=== PATIENT | male | born 1985 | race Caucasian/White ===

== ENCOUNTER 2016-11-29 20:31 | Emergency (ER) | payer OTHER ==
[2016-11-30 00:24] LABS: BILIRUBIN 1+ mg/dL (NEGATIVE); BLOOD NEGATIVE Ery/uL (NEGATIVE); CLARITY CLEAR (CLEAR); COLOR YELLOW (YELLOW); GLUCOSE (U) NORMAL (NORMAL); KETONE (U) NEGATIVE (NEGATIVE); LEUKOCYTES NEGATIVE Leu/uL (NEGATIVE); NITRITE NEGATIVE (NEGATIVE); PROTEIN TRACE (LOW) mg/dL (NEGATIVE); SPECIFIC GRAVITY >=1.030 (1.001-1.030)
[2016-11-30 00:30] LABS: BACTERIA TRACE
[2016-11-30 00:31] LABS: MUCOUS LARGE
[2016-11-30 00:41] LABS: BASOPHIL 0.3 % (0-2); EOSINOPHIL 2.5 % (0-5); HCT 44.3 % (42.0-52.0); HGB 15.1 g/dl (13.2-18.0); LYMPHOCYTE 46.2 % (15-48); MCH 29.6 pg (25.0-31.0); MCHC 34.1 g/dL (32.0-36.0); MCV 86.9 fL (78.0-100.0); MONOCYTE 7.7 % (0-12); MPV 9.8 fL (6.0-9.5); NEUTROPHIL 43.3 % (41-80); PLT 280 K/uL (150-400); RDW 13.2 % (11.5-14.0); WBC 7.7 K/uL (4.0-10.5)
[2016-11-30 01:13] LABS: ALBUMIN 4.4 g/dL (3.5-5.0); BILIRUBIN - TOTAL 0.5 mg/dL (0.1-1.0); CREATININE 0.8 mg/dL (0.7-1.2); GLOBULIN (CALCULATION) 1.8 g/dL (2.2-4.2); POTASSIUM 3.9 mmol/L (3.5-5.1); TOTAL PROTEIN 6.2 g/dL (6.4-8.3)
== END 2016-11-30 04:08 | disposition home or self-care (01) ==
LOC: FER 20:31
PROVIDERS: Emergency Medicine
DX: R10.2 Pelvic and perineal pain (principal); R10.11 Right upper quadrant pain; R10.12 Left upper quadrant pain; R11.0 Nausea; R19.7 Diarrhea, unspecified; R06.02 Shortness of breath; F17.210 Nicotine dependence, cigarettes, uncomplicated; Z90.49 Acquired absence of other specified parts of digestive tract
CPT/HCPCS: 36415; 80053; 81001; 83690; 85025

== ENCOUNTER 2021-04-28 01:04 | Emergency (ER) | payer OTHER ==
[~2021-04-28 01:04] MED LIST: AUGMENTIN 875-1 EACH PO; BENTYL10 MG PO; BROMFED DM COU473 ML PO; CYCLOBENZAPRINE10 MG PO; DICLOFENAC SODI75 MG PO; FLEXERIL10 MG PO; IBU800 MG PO; IBUPROFEN800 MG PO; MEDROL 4MG DOSEP4 MG PO; PENICILLIN V P250 M1 PO; ULTRAM50 MG PO; VOLTAREN **OUT75 MG PO; ZOFRAN8 MG PO
[2021-04-28] MEDS ORDERED: NORCO 5-325 TA1 EACH PO (02:11)
[2021-04-28] MEDS ORDERED: CLEOCIN300 MG PO (02:11)
[2021-04-28] MEDS ORDERED: PERIDEX15 ML PO (02:13)
== END 2021-04-28 02:26 | disposition home or self-care (01) ==
LOC: FER 01:04
DX: K04.7 Periapical abscess without sinus (principal); K02.9 Dental caries, unspecified; F17.210 Nicotine dependence, cigarettes, uncomplicated
CPT/HCPCS: 99282

== ENCOUNTER 2021-11-02 09:11 | Emergency (ER) | payer OTHER ==
[~2021-11-02 09:11] MED LIST changes: +CLEOCIN300 MG PO; +NORCO 5-325 TA1 EACH PO; +PERIDEX15 ML PO
[2021-11-02 10:24] LABS: CORONAVIRUS 2019 SARS-COV-2 NEGATIVE (NEGATIVE)
[2021-11-02 10:26] LABS: INFLUENZA A NAA POSITIVE (NEGATIVE)
== END 2021-11-02 12:45 | disposition home or self-care (01) ==
LOC: FER 09:11
PROVIDERS: Emergency Medicine
DX: J10.1 Influenza due to other identified influenza virus with other respiratory manifestations (principal); F17.210 Nicotine dependence, cigarettes, uncomplicated; Z20.822 Contact with and (suspected) exposure to COVID-19
CPT/HCPCS: 99283; U0002

== ENCOUNTER 2021-11-12 09:43 | Emergency (ER) | payer OTHER ==
[2021-11-12] MEDS ORDERED: NORCO 5-325 TA1 EACH PO (12:25)
[2021-11-12] MEDS ORDERED: MEDROL 4MG DOSEP4 MG PO (12:25)
== END 2021-11-12 12:33 | disposition home or self-care (01) ==
LOC: FER 09:43
DX: S43.401A Unspecified sprain of right shoulder joint, initial encounter (principal)
CPT/HCPCS: 73030